=== PATIENT | female | born 1955 | race Caucasian/White ===

== ENCOUNTER 2017-06-25 10:00 | Emergency (ER) | payer SELFPAY ==
[2017-06-25 10:55] LABS: Basophils % (Auto) 0.5 % (0.0-1.8); Eosinophils % (Auto) 3.6 % (0.0-4.3); Hemoglobin 13.3 gm/dl (10.1-14.3); Mean Corpuscular HGB Conc 34 % (30-34); Mean Corpuscular Hemoglobin 30 pg (28-32); Mean Corpuscular Volume 88 fl (79-97); Platelet Count 291 K/mm3 (140-440); Red Blood Count 4.44 M/mm3 (3.65-5.03); White Blood Count 10.8 K/mm3 (4.5-11.0)
[2017-06-25 11:10] LABS: Anion Gap 21 mmol/L; BUN/Creatinine Ratio 18.33; Blood Urea Nitrogen 11 mg/dL (7-17); Calcium 9.4 mg/dL (8.4-10.2); Carbon Dioxide 23 mmol/L (22-30); Chloride 102.5 mmol/L (98-107); Glucose 112 mg/dL (65-100); Potassium 4.1 mmol/L (3.6-5.0); Sodium 142 mmol/L (137-145)
--- NOTE | 2017-06-25 11:27 | XRay Report ---
CHEST 2 VIEWS INDICATION: Shortness of breath. COMPARISON: None similar at this institution. FINDINGS: PA and lateral chest radiographs demonstrate normal cardiomediastinal silhouette. Clear lungs. Slight fluid or thickening along the major fissure. Intact bones. EKG leads. CONCLUSION: No acute disease. Thank you for the opportunity to participate in this patient's care.
--- NOTE | 2017-06-25 11:56 | Emergency Department Report ---
HPI - General Chief Complaint: Dyspnea/Respdistress Time Seen by Provider: 06/25/17 10:47 - HPI HPI: PATIENT C/O SORE THROAT, SOB, NO FEVER, STATES SYMPTOMS ARE WORSE AT NIGHT. PATIENT WITH PRIOR SYMPTOMS FOR A YEAR OR SO. PATIENT DENIES ANY CHEST PAIN, DIAPHORESIS, NAUSEA OR VOMITING. STATES PAIN IN THROAT IS BURNING IN NATURE. ED Past Medical Hx - Past Medical History Previous Medical History?: No - Surgical History Past Surgical History?: Yes Additional Surgical History: x1 - Family History Family history: hypertension - Social History Smoking Status: Never Smoker - Medications Home Medications: Home Medications Medication Instructions Recorded Confirmed Last Taken Type Amoxicillin [Amoxicillin TAB] 875 mg PO BID #14 tablet 06/25/17 Unknown Rx Omeprazole 40 mg PO QDAY #30 capsule. 06/25/17 Unknown Rx ED Review of Systems ROS: Stated complaint: SOB Other details as noted in HPI Comment: All other systems reviewed and negative ENT: throat pain Endocrine: no symptoms reported Physical Exam - Physical Exam Vital Signs: Vital Signs 06/25/17 06/25/17 06/25/17 10:11 10:40 10:52 Temperature 99.2 F Pulse Rate 76 84 71 Respiratory 16 21 25 H Rate Blood Pressure 163/95 O2 Sat by Pulse 99 100 Oximetry 06/25/17 11:06 Temperature Pulse Rate Respiratory 16 Rate Blood Pressure O2 Sat by Pulse 100 Oximetry Physical Exam: - General Limitations: No Limitations General appearance: alert, in no apparent distress (patient is sitting on the wheelchair and her friend was massaging her feet), obese - Eye Eye exam: Present: normal appearance - Neck Neck exam: Present: normal inspection LUNGS: clear bilaterrally throat- erythema, but no swelling cv; rrr, normal s1, s2 - Back Exam Back exam: Absent: vertebral tenderness - Neurological Exam Neurological exam: Present: alert, oriented X3 - Psychiatric Psychiatric exam: Present: normal affect, normal mood - Skin Skin exam: Present: warm, dry, intact, normal color. Absent: rash ED Course Vital Signs 06/25/17 06/25/17 06/25/17 10:11 10:40 10:52 Temperature 99.2 F Pulse Rate 76 84 71 Respiratory 16 21 25 H Rate Blood Pressure 163/95 O2 Sat by Pulse 99 100 Oximetry 06/25/17 11:06 Temperature Pulse Rate Respiratory 16 Rate Blood Pressure O2 Sat by Pulse 100 Oximetry ED Medical Decision Making - Lab Data Result diagrams: 06/25/17 10:34 06/25/17 10:34 Critical care attestation.: If time is entered above; I have spent that time in minutes in the direct care of this critically ill patient, excluding procedure time. ED Disposition Clinical Impression: Pharyngitis, Esophagitis Disposition: DC- TO HOME OR SELFCARE Is pt being admited?: No Does the pt Need Aspirin: No Condition: Stable Prescriptions: Amoxicillin [Amoxicillin TAB] 875 mg PO BID #14 tablet Omeprazole 40 mg PO QDAY #30 capsule. Referrals: CINDI BERG MD [Primary Care Provider] - 3-5 Days HAIDER YANES MD [Staff Physician] - 3-5 Days
[2017-06-25 12:12] VITALS: BP 132/76
== END 2017-06-25 12:22 | disposition home or self-care (01) ==
LOC: ED 10:00
DX: K20.9 Esophagitis, unspecified (principal); J02.9 Acute pharyngitis, unspecified
CPT/HCPCS: 36415; 71020; 80048; 83880; 84484; 85025; 93005; 93010; 99284